=== PATIENT | male | born 1950 | race Caucasian/White ===

== ENCOUNTER → 2019-01-05 | Outpatient (CLI) | payer MEDICARE, OTHER | LOC: COL.RAD 09:12 | DX: C61 Malignant neoplasm of prostate (principal) | CPT/HCPCS: A9503 ==

== ENCOUNTER 2020-08-29 08:50 | Day surgery (SDC) | payer MEDICARE ==
[~2020-08-29] VITALS: Ht 167.6 cm; Wt 72.3 kg
[2020-08-29] MEDS ORDERED: ONE-A-DAY ESSE1 EACH PO (09:54)
[2020-08-29] MEDS ORDERED: SYNTHROID 0.0.025 MG PO (09:54)
[2020-08-29 09:55] VITALS: BP 142/73; PULSE 66; TEMP 97.9
[2020-08-29] MEDS ORDERED: ULTRAM 50MG TAB50 MG PO (13:01)
[2020-08-29 14:00] VITALS: BP 122/67; PULSE 16; TEMP 97.2
--- NOTE | 2020-08-29 14:00 | NUR ---
TO RM 1 PER CART FROM PACU. ALERT ORIENTED X3, TALKING WITH AND STAFF. C/O PAIN MILD 3/10. INCISIONS COVERED WITH SKIN ADHESIVE THAT ARE CLEAN DRY INTACT.
[2020-08-29 14:15] VITALS: BP 129/67; PULSE 66
--- NOTE | 2020-08-29 14:15 | NUR ---
RECEIVED WATER AND TAKING SIPS. IS AT BEDSIDE.
[2020-08-29 14:30] VITALS: BP 118/59; PULSE 69
--- NOTE | 2020-08-29 14:30 | NUR ---
C/O FEELING SLIGHTLY NAUSEATED AND BELTCHING. RECEIVED A CRACKER.
[2020-08-29 14:45] VITALS: BP 127/60; PULSE 71
--- NOTE | 2020-08-29 14:45 | NUR ---
ATE 2ND CRACKER. AND FINISHED CUP OF WATER.
[2020-08-29 15:00] VITALS: BP 131/62; PULSE 72
--- NOTE | 2020-08-29 15:00 | NUR ---
PATIENT STATED HE WAS NOT NAUSEATED ANYMORE.
--- NOTE | 2020-08-29 15:30 | NUR ---
AMBULATED TO BATHROOM AND UNABLE TO VOID. INSTRUCTED PATIENT IF HE IS UNABLE TO URINATE OVER 8 HRS HE WOULD NEED TO COME BACK TO ER. PATIENT VERBALIZED UNDERSTANDING.
--- NOTE | 2020-08-29 16:00 | NUR ---
RECEIVED DISCHARGE INSTRUCTIONS AND VERBALIZED UNDERSTANDING. DISCONTINUED IV AND INT- CATHETER INTACT. PATIENT GETTING DRESSED.
--- NOTE | 2020-08-29 16:20 | NUR ---
DISCHARGED PER WC BY NURSING STAFF TO PRIVATE CARE IN CARE OF .
== END 2020-08-29 16:26 | disposition home or self-care (01) ==
LOC: SDCO 08:50
DX: K40.31 Unilateral inguinal hernia, with obstruction, without gangrene, recurrent (principal); K66.0 Peritoneal adhesions (postprocedural) (postinfection); E03.9 Hypothyroidism, unspecified; Z79.890 Hormone replacement therapy; Z90.89 Acquired absence of other organs; Z90.79 Acquired absence of other genital organ(s)
CPT/HCPCS: A4314; C1781; J7120